=== PATIENT | male | born 1980 | race Caucasian/White ===

== ENCOUNTER 2018-06-22 20:18 | Emergency (ER) | payer SELFPAY ==
--- NOTE | 2018-06-22 21:10 | NUR ---
CALLED PATIENTS NAME 3 TIMES, NO RESPONSE. WILL TRY AGAIN AT A LATER TIME.
--- NOTE | 2018-06-22 21:20 | NUR ---
CALLED PATIENTS NAME 3 TIMES, NO RESPONSE. WILL TRY AGAIN AT A LATER TIME.
--- NOTE | 2018-06-22 22:10 | NUR ---
CALLED PATIENTS NAME 3 TIMES, NO RESPONSE. WILL TRY AGAIN AT A LATER TIME. MADE AWARE
--- NOTE | 2018-06-22 22:10 | NUR ---
Patient left without being triaged and without being seen by ER Physician
== END 2018-06-22 22:13 | disposition left against medical advice (07) ==
LOC: ER 20:25
DX: Z53.21 Procedure and treatment not carried out due to patient leaving prior to being seen by health care provider (principal)